=== PATIENT | female | born 1960 | race African-American/Black ===

== ENCOUNTER 2017-05-13 08:34 | Emergency (ER) | payer MEDICARE, MEDICAID ==
[~2017-05-13] VITALS: Ht 154.9 cm; Wt 73.0 kg
[~2017-05-13 08:34] MED LIST: CHOL100036 PO; CINA30 PO; DOCU-272 PO; FOLI0.8T23 PO; FURO-151 PO; SEVE800T8 PO
[2017-05-13] MEDS ORDERED: WARF2TAB55 PO (09:07)
[2017-05-13 11:50] VITALS: BP 93/58
== END 2017-05-13 12:59 | disposition home or self-care (01) ==
LOC: ER 09:23
DX: I12.0 Hypertensive chronic kidney disease with stage 5 chronic kidney disease or end stage renal disease (principal); N18.6 End stage renal disease; Z99.2 Dependence on renal dialysis; Z88.3 Allergy status to other anti-infective agents; Z79.01 Long term (current) use of anticoagulants
CPT/HCPCS: 71010; 99283

== ENCOUNTER 2018-02-07 05:09 | Inpatient (IN) | payer MEDICARE, MEDICAID ==
[~2018-02-07] VITALS: Ht 160 cm; Wt 74.8 kg
[~2018-02-07 05:09] MED LIST changes: +WARF-67 PO
[2018-02-07 07:17] LABS: BASOPHILS % 0.1 % (0.0-2.0); HEMATOCRIT. 35.3 % (36.0-48.0); HEMOGLOBIN. 11.5 g/dL (12.0-16.0); LYMPHOCYTES % 22.7 % (20.0-50.0); MEAN CORPUSCULAR HEMOGLOBIN 33.2 pg (28.0-32.0); MEAN CORPUSCULAR VOLUME 101.7 fL (81.0-99.0); MEAN PLATELET VOLUME 7.8 fl (7.4-10.4); MONOCYTES % 11.3 % (2.0-8.0); NEUTROPHILS % 62.9 % (40.0-76.0); PLATELET 198 x1000/uL (130-400); RED BLOOD CELL COUNT 3.47 mill/uL (4.2-5.4)
[2018-02-07 07:18] LABS: CHLORIDE 104 mEq/L (98-107)
[2018-02-07 07:21] LABS: INR 1.2; PARTIAL THROMBOPLASTIN TIME 28.7 sec (23.4-31.0); PROTHROMBIN TIME 12.7 sec (9.4-11.6)
[2018-02-07] MEDS ORDERED: DIPHENHYDRAMINE 50MG/ML VIAL IV ONE (08:00)
[2018-02-07] MEDS ORDERED: ACETAMINOPHEN 650MG/20.3ML UDC GT PRN (10:15)
[2018-02-07] MEDS ORDERED: HYDRALAZINE 20MG/ML VIAL IV PRN (10:45)
[2018-02-07] MEDS ORDERED: FUROSEMIDE 40MG/4ML VIAL IVP SCH (11:00)
[2018-02-07] MEDS ORDERED: LISINOPRIL 5MG TABLET PO SCH (11:00)
[2018-02-07 12:00] VITALS: BP 167/105
[2018-02-07] MEDS: SEVELAMER CARBONATE 800 MG TABLET PO SCH ×2 (14:04→19:02)
[2018-02-07] MEDS ORDERED: LORAZEPAM 2MG/ML CPJ IV NR (14:30)
[2018-02-07 16:00] VITALS: BP 119/55
[2018-02-07 17:08] VITALS: BP 151/116
[2018-02-07] MEDS ORDERED: WARFARIN SODIUM 4MG TABLET PO SCH (18:00)
[2018-02-07 20:00] VITALS: BP 140/96
[2018-02-08] MEDS ORDERED: CHOLECALCIFEROL (D3) 1000 UNIT TABLET PO SCH (09:00)
[2018-02-08] MEDS ORDERED: FOLIC ACID 1MG TABLET PO SCH (09:00)
[2018-02-08] MEDS ORDERED: DOCUSATE SODIUM 100MG CAPSULE PO SCH (09:00)
[2018-02-08] MEDS ORDERED: CINACALCET HCL 30MG TABLET PO SCH (09:00)
== END 2018-02-07 20:55 | disposition left against medical advice (07) | DRG 313 ==
LOC: ER 05:20 → 7WST 08:06 → EDBEDREQ 08:13 → ENRESERV 09:05
PROVIDERS: ADMIT Internal Medicine; ATTEND Internal Medicine
PROC: 5A1D70Z Performance of Urinary Filtration, Intermittent, Less than 6 Hours Per Day (ICD-10-PCS; principal; 2018-02-07)
DX: R07.89 Other chest pain (principal); N18.6 End stage renal disease; I12.0 Hypertensive chronic kidney disease with stage 5 chronic kidney disease or end stage renal disease; I24.9 Acute ischemic heart disease, unspecified; N25.81 Secondary hyperparathyroidism of renal origin; Z53.21 Procedure and treatment not carried out due to patient leaving prior to being seen by health care provider; D63.8 Anemia in other chronic diseases classified elsewhere; Z99.2 Dependence on renal dialysis; Z88.1 Allergy status to other antibiotic agents; Z88.8 Allergy status to other drugs, medicaments and biological substances; Z79.01 Long term (current) use of anticoagulants; Z79.899 Other long term (current) drug therapy; Z98.891 History of uterine scar from previous surgery
CPT/HCPCS: 36415; 71045; 80053; 82962; 83690; 83880; 84484; 85025; 85610; 85730; 93005; J0360; J1200; J2060